=== PATIENT | female | born 1950 | race Asian ===

== ENCOUNTER 2018-06-18 08:05 | Outpatient (CLI) | payer OTHER ==
[~2018-06-18] VITALS: Ht 157.5 cm; Wt 77.6 kg
== END 2018-06-18 22:59 | disposition home or self-care (01) ==
LOC: NM 08:05
DX: R07.89 Other chest pain (principal)
CPT/HCPCS: 93306; A9500; J2785

== ENCOUNTER 2018-06-29 09:07 | Emergency (ER) | payer OTHER ==
[~2018-06-29] VITALS: Ht 157.5 cm; Wt 77.6 kg
[2018-06-29 09:13] VITALS: TEMP 97.9
[2018-06-29 10:32] LABS: PLATELET COUNT 263 K/uL (152-353)
[2018-06-29 10:46] LABS: POTASSIUM 3.4 mmol/L (3.6-5.2); SODIUM 143 mmol/L (136-145)
[2018-06-29 11:30] VITALS: BP 142/79
== END 2018-06-29 11:30 | disposition home or self-care (01) ==
LOC: ED 09:07
PROVIDERS: Allergy & Immunology
DX: R07.89 Other chest pain (principal); I45.81 Long QT syndrome
CPT/HCPCS: 80053; 81000; 82553; 84484; 85027; 93005; 99283; J1885

== ENCOUNTER 2018-12-04 08:38 | Day surgery (SDC) | payer OTHER | END 2018-12-04 11:25 | disposition home or self-care (01) | LOC: OR 08:38 | PROC: 3E0R33Z Introduction of Anti-inflammatory into Spinal Canal, Percutaneous Approach (ICD-10-PCS; principal; 2018-12-04) | PROC: B01BYZZ Fluoroscopy of Spinal Cord using Other Contrast (ICD-10-PCS; 2018-12-04) | DX: M51.16 Intervertebral disc disorders with radiculopathy, lumbar region (principal) ==

== ENCOUNTER 2019-01-08 09:08 | Day surgery (SDC) | payer OTHER | END 2019-01-08 11:42 | disposition home or self-care (01) | LOC: OR 09:08 | PROC: 3E0R33Z Introduction of Anti-inflammatory into Spinal Canal, Percutaneous Approach (ICD-10-PCS; principal; 2019-01-08) | PROC: B01BYZZ Fluoroscopy of Spinal Cord using Other Contrast (ICD-10-PCS; 2019-01-08) | DX: M51.16 Intervertebral disc disorders with radiculopathy, lumbar region (principal) | CPT/HCPCS: J1020; J1100; J2001 ==